=== PATIENT | male | born 1995 | race Caucasian/White ===

== ENCOUNTER 2019-12-17 08:10 | Emergency (ER) | payer OTHER, SELFPAY ==
[~2019-12-17] VITALS: Ht 167.6 cm; Wt 54.4 kg
[2019-12-17 08:19] VITALS: Ht 167.6 cm; Wt 54.4 kg
[2019-12-17 08:40] VITALS: BP 123/79
== END 2019-12-17 08:40 | disposition home or self-care (01) ==
LOC: ED 08:10
DX: R06.00 Dyspnea, unspecified (principal); R06.02 Shortness of breath; Z20.828 Contact with and (suspected) exposure to other viral communicable diseases
CPT/HCPCS: U0003-CS